=== PATIENT | female | born 1945 | race Hispanic/Latino ===

== ENCOUNTER 2017-04-14 09:20 | Outpatient (CLI) | payer MEDICARE, OTHER ==
--- NOTE | 2017-04-14 15:34 | Mammography Report ---
BILATERAL DIGITAL SCREENING MAMMOGRAM with CAD : 04/14/17 09:20:00 CLINICAL: Routine screening. COMPARISON:04/12/16, 04/11/15 and 04/10/14 FINDINGS: The breasts are heterogeneously dense, which may obscure small masses.Stable fiber glandular pattern. Bilateral benign calcifications. A left central biopsy clip. No mass, architectural distortion or suspicious calcifications. IMPRESSION: No mammographic evidence of malignancy. BI-RADS CATEGORY: 2 -- Benign RECOMMENDATION: Routine mammographic screening in one year.
== END 2017-04-14 09:21 | disposition home or self-care (01) ==
LOC: SPVWC 09:20
PROVIDERS: ATTEND Family Medicine
DX: Z12.31 Encounter for screening mammogram for malignant neoplasm of breast (principal)
CPT/HCPCS: 77067; G0202

== ENCOUNTER 2017-05-17 10:27 | Outpatient (CLI) | payer MEDICARE, OTHER ==
--- NOTE | 2017-05-17 14:45 | Mammography Report ---
BONE DEXA:05/17/17 10:27:00 CLINICAL: Postmenopausal. No comparison. TECHNIQUE: Two site bone DEXA performed on an Hologic scanner. FINDINGS: The average BMD of the lumbar spine L1, L3 and L4 is 1.102g/cm squared with a T-score of +0.4 and a Z-score of +2.6. The L2 vertebral body was excluded as an outlier because sclerotic change in the body. The average BMD of the left forearm is 0.548g/cm squared with a T-score of -0.3 and a Z-score of +1.9. IMPRESSION: WHO classification: Normal with average fracture risk based on both spine and left forearm measurements. RECOMMENDATION: Clinical correlation and routine screening. DEFINITIONS: BMD = Bone Mineral Density T-score = BMD related to mean peak bone mass of young adult (mean expressed in Standard Deviation) Z-score = Age matched BMD expressed in SD World Health Organization (WHO) Diagnostic Criteria Normal T-score > -1 SD Osteopenia T-score between -1 and -2.4 SD Osteoporosis T-score -2.5 SD or below NOTE: BMD is not the only risk factor for fracture. One should also consider factors such as the patient's age, risk of falling, previous osteoporotic fracture, family history of osteoporotic fractures, current smoker, and low body weight. Z-scores are not calculated if >80 years of age.
== END 2017-05-17 10:28 | disposition home or self-care (01) ==
LOC: SPVWC 10:27
PROVIDERS: ATTEND Family Medicine
DX: M85.80 Other specified disorders of bone density and structure, unspecified site (principal); Z78.0 Asymptomatic menopausal state
CPT/HCPCS: 77080

== ENCOUNTER 2017-11-29 06:22 | Day surgery (SDC) | payer MEDICARE, OTHER ==
[~2017-11-29 06:22] MED LIST: FLAGYL 500 MG/100 ML 500 MG/100 ML BAG IV SCH; NEOSPORIN GU IR ONE; XYLOCAINE 2% INFILTRATI ONE
[2017-11-29] MEDS ORDERED: XYLOCAINE 2% INFILTRATI ONE ×3 (06:48→09:25)
[2017-11-29] MEDS ORDERED: NEOSPORIN GU IR ONE ×2 (06:48→09:00)
[2017-11-29] MEDS: NACL 0.9% 1000 ML 1,000 ML IV SCH ×2 (07:20→10:25)
[2017-11-29] MEDS ORDERED: DIPRIVAN 10 MG/ML IV ONE (07:27)
[2017-11-29] MEDS ORDERED: ZEMURON IV ONE (07:28)
[2017-11-29] MEDS ORDERED: QUELICIN ONE (07:28)
[2017-11-29] MEDS ORDERED: XYLOCAINE MPF 2% ONE (07:29)
[2017-11-29] MEDS ORDERED: SUBLIMAZE ONE (08:05)
[2017-11-29] MEDS ORDERED: ePHEDrine 50 MG/5 ML-0.9% NACL IV ONE (08:12)
[2017-11-29] MEDS ORDERED: DILAUDID IV PRN ×2 (08:39→08:42)
[2017-11-29] MEDS ORDERED: ZOFRAN IV PRN (08:39)
--- NOTE | 2017-11-29 08:41 | Anesthesia Day of Surgery ---
Anesthesia Day of Surgery - Day of Surgery Patient Examined: Yes Patient H&P Reviewed: Yes Patient is NPO: Yes
--- NOTE | 2017-11-29 08:41 | Anesthesia Consultation ---
Anesthesia Consult and Med Hx Date of service: 11/29/17 - Airway Anesthetic Teeth Evaluation: Poor ROM Head & Neck: Inadequate Mental/Hyoid Distance: Inadequate Mallampati Class: Class III Intubation Access Assessment: Possibly Difficult - Pulmonary Exam CTA: Yes - Cardiac Exam Cardiac Exam: RRR - Pre-Operative Health Status ASA Pre-Surgery Classification: ASA3 Proposed Anesthetic Plan: General - Pulmonary Hx Smoking: No Hx Sleep Apnea: No (SLY PRE SCREEN HIGH RISK) - Cardiovascular System Hx Hypertension: Yes (X 20 YRS) - Central Nervous System Hx Back Pain: Yes - Endocrine Hx Hypothyroidism: Yes Hx Hyperthyroidism: Yes (had radiation) - Hematic Hx Anemia: Yes (NOT RECENT) - Other Systems Hx Alcohol Use: No Hx Substance Use: No Hx Cancer: No
[2017-11-29] MEDS ORDERED: ZOFRAN ONE (09:08)
[2017-11-29] MEDS ORDERED: DECADRON ONE (09:08)
--- NOTE | 2017-11-29 09:33 | Short Stay Summary ---
Short Stay Documentation Date of service: 11/29/17 - History H&P: obtained from office - Allergies and Medications Current Medications: Allergies No Known Allergies Allergy (Verified 11/18/17 12:11) Home Medications Medication Instructions Recorded Confirmed Last Taken Type Cholecalciferol Vit D3 [Vitamin D3] 1,000 unit PO QDAY 10/22/14 11/29/17 10 Days Ago History ~11/19/17 Gabapentin [Neurontin] 600 mg PO TID 10/22/14 11/18/17 11/28/17 History Glatiramer Acetate (Nf) [Copaxone 40 mg SQ Q48HR 10/22/14 11/18/17 11/28/17 History (Nf)] Hydrochlorothiazide 25 mg PO DAILY 10/22/14 11/18/17 11/28/17 History Nebivolol HCl [Bystolic] 10 mg PO QDAY 10/22/14 11/18/17 11/28/17 History Russell-3 Fatty Acids/Fish Oil 1,000 mg PO QDAY 10/22/14 11/29/17 10 Days Ago History ~11/19/17 Pantoprazole [Protonix TAB] 40 mg PO BID 10/22/14 11/18/17 11/28/17 History Thyroid,Pork [[place] Thyroid] 120 mg PO QAM 10/22/14 11/18/17 11/28/17 History metFORMIN [Glucophage] 500 mg PO BID 10/22/14 11/18/17 11/28/17 History Meclizine [Antivert] 12.5 mg PO Q12H PRN #20 tablet 11/05/14 11/18/17 Unknown Rx oxyCODONE /ACETAMINOPHEN [Percocet 1 tab PO Q8H PRN #1 tablet 11/05/14 11/18/17 11/28/17 Rx 5/325 mg] ALPRAZolam [Xanax TAB] 0.5 mg PO PRN PRN 11/18/17 11/29/17 11/28/17 History Aspirin [Lo-Dose Aspirin EC] 81 mg PO DAILY 11/18/17 11/29/17 11/19/17 History Eszopiclone [Lunesta] 3 mg PO QHS 11/18/17 11/18/17 11/28/17 History Simvastatin [Zocor TAB] 20 mg PO QHS 11/18/17 11/18/17 11/28/17 History traMADol [Ultram] 50 mg PO Q6HR PRN 11/18/17 11/18/17 11/28/17 History Inulin/Chromium Picolinate [Fiber 1 each PO DAILY 11/29/17 11/29/17 11/19/17 History Gummies] Liothyronine Sodium 50 mcg PO DAILY 11/29/17 11/29/17 11/28/17 History Multivitamin/Iron/Folic Acid 1 each PO DAILY 11/29/17 11/29/17 11/19/17 History [Centrum Women Tablet] Namzakic 28 mg PO DAILY 11/29/17 11/29/17 3 Weeks Ago History ~11/08/17 Sertraline [Zoloft] 200 mg PO DAILY 11/29/17 11/29/17 11/28/17 History Tolterodine Tartrate [Detrol] 1 mg PO DAILY 11/29/17 11/29/17 11/28/17 History Trimidone 50 mg PO DAILY 11/29/17 11/29/17 11/28/17 History Vitamin C/Biotin [Hair, Skin and 1 each PO DAILY 11/29/17 11/29/17 11/19/17 History Nails Gummies] Active Medications Hydromorphone HCl (Dilaudid) 0.5 mg IV Q10MIN PRN PRN Reason: Pain , Severe (7-10) Stop: 11/29/17 13:00 Metronidazole (Flagyl 500 Mg/100 Ml) 500 mg in 100 mls @ 100 mls/hr IV PREOP TOBI Stop: 11/29/17 23:59 Sodium Chloride (Nacl 0.9% 1000 Ml) 1,000 mls @ 75 mls/hr IV DIRECT TOBI Last Admin: 11/29/17 07:20 Dose: 75 mls/hr Ondansetron HCl (Zofran) 4 mg IV ONCE PRN PRN Reason: Nausea And Vomiting Stop: 11/29/17 11:00 - Brief post op/procedure progress note Date of procedure: 11/29/17 Pre-op diagnosis: non obstructive retention (incontinence) Post-op diagnosis: same Procedure: replace quadrapolar lead & implantable pulse generator Anesthesia: GETA Surgeon: TIERNEY CHI Estimated blood loss: minimal Pathology: list (battery, lead) Specimen disposition: to lab Condition: stable - Hospital course Hospital course: cipro & percocet on chart - Disposition Condition at discharge: Stable Disposition: DC-01 TO HOME OR SELFCARE Short Stay Discharge Plan Follow up with: CHINO HANNAH MD [Primary Care Provider] - 7 Days
--- NOTE | 2017-11-29 12:40 | Operative Report ---
PREOPERATIVE DIAGNOSIS: Urinary incontinence (overflow incontinence). POSTOPERATIVE DIAGNOSES: 1. Urinary incontinence (overflow incontinence). 2. Neurogenic bladder. PROCEDURE: Replacement of quadripolar lead and implantable pulse generator. SURGEON: Jaden Amos MD ANESTHESIA: General. ESTIMATED BLOOD LOSS: Minimal. FLUIDS: Crystalloid. COMPLICATIONS: No complications. INDICATIONS: This patient is a 72-year-old female known to my service for several years. She has had InterStim placed on 12/11/2008 for nonobstructive urinary retention. Throughout the years, she has done well; however, she has required several back surgeries that have changed the status of her InterStim and she has required replacement. Recently, she had nonfunction of her InterStim. Interrogation in the office was consistent with nonfunctioning battery. She presents now for evaluation and possible replacement of the battery and lead. DESCRIPTION OF PROCEDURE: The patient was taken to the operative suite, placed in a supine position. After adequate general anesthesia, she was then placed in a prone position, prepped and draped in a sterile fashion. She has a right InterStim lead and a left-sided IPG. This was confirmed on fluoroscopy. Lower abdomen was prepped and draped in a sterile fashion. With the aid of C-arm fluoroscopy the components could be appreciated on the left side skin incision was made over the battery. Sharp dissection was taken down. The battery was exposed and removed. Testing of the lead revealed no stimulation with all four wires. Multiple attempts were made to stimulate the wires unsuccessfully. With a 5.5 inch needle cannulated the left S3 foramen for nerve testing with no response. Cannulated on the right side, one foramen cephalad to the existing lead with an excellent response with anal wink and toe reflex. Therefore, a new quadripolar lead was deployed. Testing again confirmed adequate positioning. The old lead was then removed without difficulty and was sent to pathology along with the battery. Since the left-sided pouch was exposed, I tunneled the lead to the left side. I had to extend it slightly to allow positioning of the new battery. Battery was placed in the position (implantable pulse generator). Interrogation intraoperatively revealed excellent response. Adequate hemostasis was achieved. Subcutaneous tissue was closed with 2-0 Vicryl in a running fashion. Skin was closed with 3-0 Vicryl in interrupted fashion. Tegaderm was placed. The patient tolerated the procedure well. She was extubated and taken to the recovery room. She will go home on Cipro and [place] and follow up in the office. She had also on fluoroscopy. She has had multiple implants placed related to her back. JOB# [id number] C/NTS
--- NOTE | 2017-11-29 16:09 | Post Anesthesia Evaluation ---
- Post Anesthesia Evaluation Patient Participated: Yes Airway Patent: Yes Stable Respiratory Function: Yes Nausea/Vomiting: No Temp > 96.8F: Yes Pain Manageable: Yes Adequeate Hydration: Yes Anesthesia Complications: No
[2017-11-29 21:15] VITALS: BP 130/57
--- NOTE | 2017-11-30 07:47 | XRay Report ---
INTRAOPERATIVE INTERSTIM PLACEMENT RADIOGRAPH INDICATION: Urinary incontinence. Interstim replacement. COMPARISON: 12/02/2010 lumbar spine radiographs. IMAGES/CINE CLIPS: 1 FINDINGS: Intraoperative fluoroscopic guidance provided for Dr. Amos. Single lateral view demonstrates a linear radiopaque electrode introduced posteriorly with its tip in the presacral region. Hip replacement incidentally again noted. CONCLUSION: Intraoperative fluoroscopic guidance provided, as described. Please also correlate with procedure notes. Thank you for the opportunity to participate in this patient's care.
== END 2017-11-29 12:00 | disposition home or self-care (01) ==
LOC: OR 06:22
PROVIDERS: ATTEND Urology
PROC: 01PY3MZ Removal of Neurostimulator Lead from Peripheral Nerve, Percutaneous Approach (ICD-10-PCS; principal; 2017-11-29)
PROC: 01HY3MZ Insertion of Neurostimulator Lead into Peripheral Nerve, Percutaneous Approach (ICD-10-PCS; 2017-11-29)
DX: N39.490 Overflow incontinence (principal); N31.9 Neuromuscular dysfunction of bladder, unspecified; I10 Essential (primary) hypertension; E89.0 Postprocedural hypothyroidism; Z92.3 Personal history of irradiation; Z79.899 Other long term (current) drug therapy
CPT/HCPCS: 36415; 64561; 64590; 72020; 82962; 84132; 88302; C1767; C1778; C1787; C1894; J0330; J1100; J2405; J2704; J3010; J7030

== ENCOUNTER 2019-01-11 11:04 | Day surgery (SDC) | payer MEDICARE, OTHER ==
[~2019-01-11 11:04] MED LIST changes: -FLAGYL 500 MG/100 ML 500 MG/100 ML BAG IV SCH; +IOPIDINE ONE; +MYDRIACYL ONE; +NEOFRIN ONE; -NEOSPORIN GU IR ONE; -XYLOCAINE 2% INFILTRATI ONE
[2019-01-11] MEDS ORDERED: IOPIDINE OS ONE (11:39)
[2019-01-11] MEDS ORDERED: NEOFRIN OS ONE (11:40)
[2019-01-11] MEDS ORDERED: MYDRIACYL OS ONE (11:40)
[2019-01-11 12:38] VITALS: BP 153/75
== END 2019-01-11 12:55 | disposition home or self-care (01) ==
LOC: OR 11:04
PROVIDERS: ATTEND Specialist
DX: E11.36 Type 2 diabetes mellitus with diabetic cataract (principal); H26.492 Other secondary cataract, left eye; D64.9 Anemia, unspecified; E11.42 Type 2 diabetes mellitus with diabetic polyneuropathy; E78.00 Pure hypercholesterolemia, unspecified; I10 Essential (primary) hypertension; M19.90 Unspecified osteoarthritis, unspecified site; E03.9 Hypothyroidism, unspecified; F32.9 Major depressive disorder, single episode, unspecified; F41.9 Anxiety disorder, unspecified; Z98.890 Other specified postprocedural states; Z79.899 Other long term (current) drug therapy; Z79.84 Long term (current) use of oral hypoglycemic drugs; Z87.440 Personal history of urinary (tract) infections; Z98.42 Cataract extraction status, left eye; Z90.49 Acquired absence of other specified parts of digestive tract; Z86.2 Personal history of diseases of the blood and blood-forming organs and certain disorders involving the immune mechanism
CPT/HCPCS: 82962

== ENCOUNTER 2020-04-16 06:06 | Day surgery (SDC) | payer MEDICARE, OTHER ==
[2020-04-14 10:47] LABS: Hematocrit 32.2 % (30.3-42.9); Hemoglobin 11.3 gm/dl (10.1-14.3); Mean Corpuscular HGB Conc 35 % (30-34); Mean Corpuscular Volume 92 fl (79-97); Platelet Count 269 K/mm3 (140-440); Red Cell Distribution Width 14.4 % (13.2-15.2)
--- NOTE | 2020-04-14 10:53 | Anesthesia Consultation ---
Anesthesia Consult and Med Hx Date of service: 04/16/20 - Airway Anesthetic Teeth Evaluation: Good ROM Head & Neck: Inadequate (S/P neck fusion) Mental/Hyoid Distance: Inadequate Mallampati Class: Class IV Intubation Access Assessment: Difficult (HX DIFFICULT INTUBATION) - Pre-Operative Health Status ASA Pre-Surgery Classification: ASA4 Proposed Anesthetic Plan: General - Pulmonary Hx Smoking: No (Minimal ambulation; uses walker and wheelchair) Hx Asthma: No COPD: No Hx Pneumonia: Yes Hx Sleep Apnea: No (SNORES - SLY PRE SCREEN HIGH RISK) - Cardiovascular System Hx Hypertension: Yes (X 21 YRS) Hx Heart Attack/AMI: No Hx Pacemaker: No Hx Internal Defibrillator: No Hx Heart Murmur: No - Central Nervous System Hx Neuromuscular Disorder: Yes (Peripheral neuropathy; MS; neurogenic bladder) Hx Seizures: No Hx Back Pain: Yes (Right foot drop) Hx Psychiatric Problems: Yes (Anxiety/Depression) - Gastrointestinal Hx Gastroesophageal Reflux Disease: Yes - Endocrine Hx End Stage Renal Disease: No Hx Cirrhosis: No Hx Liver Disease: No Hx Non-Insulin Dependent Diabetes: Yes (No meds) Hx Thyroid Disease: Yes Hx Hypothyroidism: Yes Hx Hyperthyroidism: Yes (had radiation) - Hematic Hx Anemia: Yes (NOT RECENT) Hx Sickle Cell Disease: No - Other Systems Hx Alcohol Use: No Hx Substance Use: No Hx Cancer: No Hx Obesity: Yes (BMI-35.5)
[2020-04-14 11:04] LABS: Alanine Aminotransferase 16 units/L (7-56); Albumin 4.8 g/dL (3.9-5); BUN/Creatinine Ratio 28; Blood Urea Nitrogen 22 mg/dL (7-17); Calcium 9.4 mg/dL (8.4-10.2); Hemolysis Index 2
[~2020-04-16 06:06] MED LIST changes: -IOPIDINE ONE; -MYDRIACYL ONE; -NEOFRIN ONE; +ceFAZolin/STERILE WATER 2 GM/20 ML SYRINGE IV NR
[2020-04-16] MEDS ORDERED: BACTERIOSTATIC SODIUM CHLORIDE 0.9% 30 ML VIAL INFILTRATI ONE (06:36)
[2020-04-16] MEDS ORDERED: LACTATED RINGERS 1,000 ML IV SCH (07:00)
[2020-04-16] MEDS ORDERED: LIDOCAINE (1%) 10 MG/1 ML VIAL 20 ML MDV ONE (07:08)
[2020-04-16] MEDS ORDERED: NEOMY 3.5 MG/BACIT 400 UNITS/POLY B 5000 UNITS OINT 15 GM TP ONE (07:08)
[2020-04-16] MEDS ORDERED: HYDROmorphone 1 MG/1 ML INJ ONE (07:15)
[2020-04-16] MEDS ORDERED: LIDOCAINE MPF (2%) 20 MG/1 ML VIAL 5 ML ONE (07:15)
[2020-04-16] MEDS ORDERED: propofoL 200 MG/20 ML VIAL IV ONE (07:15)
[2020-04-16] MEDS ORDERED: ONDANSETRON 4 MG/2 ML INJ IV PRN (07:31)
[2020-04-16] MEDS ORDERED: HYDROmorphone 1 MG/1 ML INJ IV PRN ×2 (07:31)
--- NOTE | 2020-04-16 07:31 | Anesthesia Day of Surgery ---
Anesthesia Day of Surgery - Day of Surgery Patient Examined: Yes Patient H&P Reviewed: Yes Patient is NPO: Yes
[2020-04-16] MEDS ORDERED: SUCCINYLCHOLINE CHLORIDE 200 MG/10 ML INJ MDV ONE (08:02)
[2020-04-16] MEDS ORDERED: ONDANSETRON 4 MG/2 ML INJ ONE (08:45)
--- NOTE | 2020-04-16 08:47 | Short Stay Summary ---
Short Stay Documentation Date of service: 04/16/20 - History H&P: obtained from office - Allergies and Medications Current Medications: Allergies No Known Allergies Allergy (Verified 01/10/19 12:34) Home Medications Medication Instructions Recorded Confirmed Last Taken Type Cholecalciferol Vit D3 [Vitamin D3 1,000 unit PO QDAY 10/22/14 04/10/20 04/15/20 History 1,000 UNIT TAB] Gabapentin [Neurontin] 300 mg PO TID 10/22/14 04/16/20 04/15/20 History Glatiramer Acetate (Nf) [Copaxone 40 mg SQ Q48HR 10/22/14 04/16/20 04/14/20 History (Nf)] hydroCHLOROthiazide 25 mg PO DAILY 10/22/14 04/10/20 04/16/20 04:45 History [Hydrochlorothiazide] oxyCODONE /ACETAMINOPHEN [Percocet 1 tab PO Q8H PRN #1 tablet 11/05/14 04/10/20 04/15/20 Rx 5/325 mg] Eszopiclone [Lunesta] 3 mg PO QHS 11/18/17 04/16/20 04/15/20 History Simvastatin (Nf) [Zocor TAB] 20 mg PO QHS 11/18/17 04/10/20 04/16/20 04:45 History Liothyronine Sodium 50 mcg PO DAILY 11/29/17 04/10/20 04/16/20 04:45 History Multivitamin/Iron/Folic Acid 1 each PO DAILY 11/29/17 04/10/20 04/15/20 History [Centrum Women Tablet] Sertraline [Zoloft] 100 mg PO DAILY 11/29/17 04/10/20 04/16/20 04:45 History Aspirin 80 mg PO DAILY 04/09/20 04/09/20 04/09/20 History Detrol 4 mg PO DAILY 04/09/20 04/09/20 04/15/20 History Levothyroxine 75 mcg PO DAILY 04/09/20 04/09/20 04/16/20 04:45 History Myrbetriq 50 mg PO DAILY 04/09/20 04/09/20 04/16/20 04:45 History Pravastatin Sodium 40 mg PO DAILY 04/09/20 04/09/20 04/15/20 History Vitamin C 1 tab PO DAILY 04/09/20 04/09/20 04/15/20 History amLODIPine 10 mg PO DAILY 04/09/20 04/09/20 04/16/20 04:45 History Active Medications Cefazolin Sodium (Ancef/Sterile Water 2 Gm/20 Ml) 2 gm IV PREOP NR Stop: 04/16/20 23:59 Hydromorphone HCl (Dilaudid) 0.25 mg IV Q10MIN PRN PRN Reason: Pain, Moderate (4-6) Hydromorphone HCl (Dilaudid) 0.5 mg IV Q10MIN PRN PRN Reason: Pain , Severe (7-10) Lactated Ringer's (Lactated Ringers) 1,000 mls @ 100 mls/hr IV DIRECT TOBI Last Admin: 04/16/20 07:08 Dose: 100 mls/hr Documented by: Ondansetron HCl (Zofran) 4 mg IV ONCE PRN PRN Reason: Nausea And Vomiting - Brief post op/procedure progress note Date of procedure: 04/16/20 Pre-op diagnosis: malfunction interstim Post-op diagnosis: same Procedure: removal interstim lead & IPG (battery) Anesthesia: GETA Surgeon: TIERNEY CHI Estimated blood loss: minimal Pathology: list (lead & battery) Specimen disposition: to lab Condition: stable - Hospital course Hospital course: mitchell on chart - Disposition Condition at discharge: Stable Disposition: DC-01 TO HOME OR SELFCARE Short Stay Discharge Plan Follow up with: CHINO HANNAH MD [Primary Care Provider] - 7 Days
[2020-04-16] MEDS ORDERED: SODIUM CHLORIDE 0.9% IRR 1,500 ML BOTTLE IR ONE (09:00)
--- NOTE | 2020-04-16 09:16 | XRay Report ---
AP PELVIS INDICATION / CLINICAL INFORMATION: MALFUNCTIONING INTERSTIM. COMPARISON: None available. FINDINGS: Intraoperative images show removal of the interstim and battery. Signer Name: Mynor Smith MD Signed: 04/16/2020 9:11 AM Workstation Name: [id number]
[2020-04-16 10:23] VITALS: BP 170/68
--- NOTE | 2020-04-16 11:15 | Post Anesthesia Evaluation ---
- Post Anesthesia Evaluation Patient Participated: Yes Airway Patent: Yes Stable Respiratory Function: Yes Nausea/Vomiting: No Temp > 96.8F: Yes Pain Manageable: Yes Adequeate Hydration: Yes Anesthesia Complications: No Block Receding Appropriately: Not Applicable Patient on Ventilator: No
--- NOTE | 2020-04-16 12:42 | Operative Report ---
PREOPERATIVE DIAGNOSIS: Malfunctioning InterStim. POSTOPERATIVE DIAGNOSIS: Malfunctioning InterStim. PROCEDURE: Removal of InterStim battery and quadripolar lead. SURGEON: Jaden Amos MD ANESTHESIA: General. ESTIMATED BLOOD LOSS: Minimal. FLUIDS: Crystalloid. COMPLICATIONS: No complications. INDICATIONS: This 74-year-old female with a history of multiple sclerosis and urinary incontinence. She has had InterStim for years, most recently replaced in 2018, ____ worsening of her urinary symptoms, evaluation in the office determinate was nonfunctional. Instead of replacing it, she is actually scheduled for spine evaluation, which includes an MRI and therefore, she wants to have totally removed and consider replacement later. DESCRIPTION OF PROCEDURE: The patient was taken to the operative suite, placed in a supine position. After adequate general anesthesia, she was placed in a prone position, prepped and draped in a sterile fashion. With the aid of C-arm fluoroscopy, battery could be identified in the left buttock area and also palpated. Incision was made over the area with the Bovie. Sharp dissection was taken down to the battery in a subcutaneous tissue. No signs of infection could be appreciated. Manipulation of the wire and with the aid of C-arm fluoroscopy was able to locate the ____ wire was identified in the midline. The quadripolar lead was removed without difficulty. Copious irrigation was performed. Adequate hemostasis achieved. Subcutaneous tissue was closed with 2-0 Vicryl in an interrupted fashion. Skin was closed with 3-0 Vicryl in an interrupted fashion. She tolerated the procedure well. JOB# [id number] Tanvir/ARIANE
== END 2020-04-16 06:07 | disposition home or self-care (01) ==
LOC: OR 06:06
PROVIDERS: ATTEND Urology
DX: T83.190A Other mechanical complication of urinary electronic stimulator device, initial encounter (principal); Z20.828 Contact with and (suspected) exposure to other viral communicable diseases; D64.9 Anemia, unspecified; G62.9 Polyneuropathy, unspecified; E78.00 Pure hypercholesterolemia, unspecified; I10 Essential (primary) hypertension; K21.9 Gastro-esophageal reflux disease without esophagitis; E66.9 Obesity, unspecified; M19.90 Unspecified osteoarthritis, unspecified site; E11.42 Type 2 diabetes mellitus with diabetic polyneuropathy; E03.9 Hypothyroidism, unspecified; F32.9 Major depressive disorder, single episode, unspecified; F41.9 Anxiety disorder, unspecified; N39.46 Mixed incontinence; Z98.890 Other specified postprocedural states; Z79.899 Other long term (current) drug therapy; Z79.82 Long term (current) use of aspirin; Z87.440 Personal history of urinary (tract) infections; Z98.41 Cataract extraction status, right eye; Z98.42 Cataract extraction status, left eye; Z90.49 Acquired absence of other specified parts of digestive tract; Z90.710 Acquired absence of both cervix and uterus; Z68.35 Body mass index [BMI] 35.0-35.9, adult; Y82.8 Other medical devices associated with adverse incidents; Y92.89 Other specified places as the place of occurrence of the external cause
CPT/HCPCS: 36415; 64595; 72170; 80053; 82962; 85027; 87086; 88300; J0330; J0690; J1170; J2405; J2704; J7120; U0003; A6250